=== PATIENT | female | born 1995 | race Caucasian/White ===

== ENCOUNTER 2017-02-24 22:39 | Emergency (ER) | payer BC ==
[~2017-02-24 22:39] MED LIST: LEXAPRO10 M2 PO
[2017-02-24] MEDS ORDERED: CRYSELLE (23:03)
[2017-02-25] MEDS ORDERED: ZOFRAN4 M2 PO (00:48)
== END 2017-02-25 00:59 ==
LOC: EDMED 22:39
DX: S09.90XA Unspecified injury of head, initial encounter (principal); R11.2 Nausea with vomiting, unspecified; J45.909 Unspecified asthma, uncomplicated; F41.9 Anxiety disorder, unspecified; Z79.899 Other long term (current) drug therapy; W22.8XXA Striking against or struck by other objects, initial encounter
CPT/HCPCS: J1200; J2765; J7030